=== PATIENT | male | born 1970 | race Caucasian/White ===

== ENCOUNTER → 2018-08-14 | Outpatient (CLI) | payer OTHER ==
--- NOTE | 2018-08-19 11:01 | SLEEP ---
[address] [address] SLEEP STUDY REPORT Name: BRANDONJOAQUIN Zapata Room: [facility]#: [id number] Admission: 08/14/18 Attend Phys: Gudelia Mccain RN Discharge: Date of : 68 Report #: [id number] THIS REPORT FOR: //name// CC: Glenn Mccain This study has been reviewed in its entirety by a board certified sleep specialist DATE OF SERVICE: 08/16/2018 The patient is a 47-year-old who weighs 245 pounds and is 5 feet 10 inches tall. The patient's Rome score was 12. The patient underwent home sleep study performed by [facility]. Total recording time was 411 minutes. During the night study, the patient had no central or mixed apneas. There were 52 obstructive apneas and 13 hypopneas. The patient's apnea hypopnea index was 9.5 per hour. No supine sleep was recorded. Nocturnal oximetry study revealed an average oxygen saturation of 91% with lowest of 74%. 68 minutes were spent at an oxygen saturation of less than 90%. Mean heart rate was 72 beats per minute with a maximum of 104 beats per minute. IMPRESSION: 1. Mild sleep apnea-hypopnea syndrome at an apnea hypopnea index of 9.5 per hour. 2. Nocturnal hypoxia secondary to obstructive sleep apnea. RECOMMENDATIONS: 1. The patient is clinically symptomatic with an Rome score of 12. I would recommend treating the patient's sleep apnea either with a trial of oral appliance as recommended by the dentist versus a trial of CPAP titration. 2. If the patient undergoes CPAP titration, then he should be followed up in 4-6 weeks to assess compliance with CPAP and to document clinical improvement. 3. Weight loss is strongly advised. 4. Avoid [employer] depressants. 5. Cautioned regarding driving until symptoms of sleep apnea resolve with above recommendations. <ELECTRONICALLY SIGNED> By: José Yin MD 08/19/18 1101 [id number] Jamie Yin MD /nt
== END ==
LOC: M.SLEEPLAB 17:00
DX: G47.33 Obstructive sleep apnea (adult) (pediatric) (principal); R09.02 Hypoxemia; G47.9 Sleep disorder, unspecified; R40.0 Somnolence; R06.83 Snoring